=== PATIENT | female | born 1945 | race Caucasian/White ===

== ENCOUNTER 2016-06-29 16:04 | Emergency (ER) | payer MEDICARE ==
[2016-06-29 17:22] VITALS: BP 138/74
--- NOTE | 2016-06-29 17:43 | UC ---
Hip/Pelvis Pain - HPI Summary HPI Summary: 70 year old female with complaints of left hip pain. States pain has been getting worse over the last several days. The last 2 days unable to walk well due to pain. Tylenol is not helping She is unable to take NSAIDs due to plavix Pain 12/03. Denies fall. Hx arthritis Hx of needing cortisone injection in this hip several years ago with good relief - History Of Current Complaint Chief Complaint: UCGeneralIllness Stated Complaint: LEFT HIP PAIN Time Seen by Provider: 06/29/16 17:14 Hx Obtained From: Patient ?: No Onset/Duration: Gradual Onset, Lasting Days, Worse Since - x 2days Timing: Constant Severity Initially: Mild Severity Currently: Severe Pain Scale Used: 0-10 Numeric - 8/10 Location: Discrete At: - left posterior hip Character Of Pain: Sharp, Aching, Stiffness Aggravating Factor(s): Movement, Weight Bearing Alleviating Factor(s): Nothing Associated Signs And Symptoms: Negative: Swelling, Redness, Bruising, Fever, Weakness, Dizziness, Syncope, Abdominal Pain, Knee Pain Related History: Similar Episode/Dx As - arthritis - Risk Factors Septic Arthritis Risk Factor: Negative - Allergies/Home Medications Allergies/Adverse Reactions: Allergies Allergy/AdvReac Type Severity Reaction Status Date / Time Amoxicillin [From Augmentin] Allergy Itching Verified 06/29/16 17:22 Clavulanic Acid Allergy Itching Verified 06/29/16 17:22 [From Augmentin] Doxycycline Allergy Hives Verified 06/29/16 17:22 NSAIDs Allergy Bleeding Verified 06/29/16 17:23 Home Medications: Home Medications Alprazolam 0.25 mg PO 06/29/16 [History] Aspirin [Aspirin Adult Low Strengt] 81 mg PO 06/29/16 [History] Clopidogrel TAB* [Plavix TAB*] 75 mg PO DAILY 06/29/16 [History Confirmed ] Levothyroxine TAB* [Synthroid TAB*] 100 mcg PO DAILY 06/29/16 [History Confirmed 06/29/16] Lisinopril [Lisinopril 2.5 MG-] 2.5 mg PO DAILY 06/29/16 [History Confirmed 10/10] Metoprolol & Hydrochlorothiazi [Metoprolol Succinate ER/H 25-12.5 mg] 1 tab PO 06/29/16 [History] Nitroglycerin 0.4 mg SL 06/29/16 [History] PARoxetine HCL TAB* [Paxil TAB*] 40 mg PO DAILY 06/29/16 [History Confirmed 10/10] Rosuvastatin Calcium [Crestor] 5 mg PO 06/29/16 [History] predniSONE TAB* [Deltasone TAB*] 5 mg PO DAILY 06/29/16 [History Confirmed 06/29] PMH/Surg Hx/FS Hx/Imm Hx Previously Healthy: Yes Endocrine History Of: Reports: Thyroid Disease Denies: Diabetes Cardiovascular History Of: Reports: Cardiac Disorders - [place] 2004 5 stents, Hypertension Respiratory History Of: Denies: COPD, Asthma GI/ History Of: Denies: Ulcer - Surgical History Surgical History: Yes Surgery Procedure, Year, and Place: lumpectomy 2009. 5 stents placed [place] 2004 - Family History Known Family History: Positive: Cardiac Disease, Hypertension - Social History Occupation: Retired Lives: With Family - Alcohol Use: None Substance Use Type: None Smoking Status (MU): Light Every Day Tobacco Smoker Type: Cigarettes - 8 per day Have You Smoked in the Last Year: Yes Cessation Counseling: Patient Advised to Stop - Immunization History Most Recent Influenza Vaccination: fall 2015 Review of Systems Constitutional: Negative Skin: Negative Eyes: Negative ENT: Negative Respiratory: Negative Cardiovascular: Negative Gastrointestinal: Negative Genitourinary: Negative Motor: Decreased ROM - due to pain in the left hip Neurovascular: Negative Musculoskeletal: Arthralgia - left hip Neurological: Negative Psychological: Negative All Other Systems Reviewed And Are Negative: Yes Physical Exam Triage Information Reviewed: Yes Appearance: Well-Appearing, Well-Nourished, Pain Distress - resting in the wheelchair rubbing her left hip Vital Signs: Initial Vital Signs Pulse 73 06/29/16 17:13 Resp 18 06/29/16 17:13 BP 138/74 06/29/16 17:13 Pulse Ox 96 06/29/16 17:13 Vital Signs Reviewed: Yes Eyes: Positive: Conjunctiva Clear. Negative: Discharge ENT: Positive: Hearing grossly normal. Negative: Nasal congestion Neck: Positive: Supple, Nontender Respiratory: Positive: Lungs clear, Normal breath sounds. Negative: Crackles, Wheezing Abdomen Description: Positive: Nontender, Soft Musculoskeletal: Positive: No Edema, Strength Limited @ - Unable to bear full weight due to acute pain in left hip, ROM Limited @ - due to acute pain in left hip. Good sensation to light touch throughout the left lower extremity. Neurological: Positive: Alert, Muscle Tone Normal Psychological: Positive: Normal Response To Family - , Age Appropriate Behavior - pleasant and cooperative Skin: Negative: rashes, breakdown Hip Injury Course/Dx - Course Course Of Treatment: Declined one dose of toradol for pain. Medicated with [place] and Zofran for pain. Left hip xray - Differential Dx/Diagnosis Differential Diagnosis/HQI/PQRI: Arthritis, Bursitis Provider Diagnoses: Left hip pain. Arthritis Discharge - Discharge Plan Condition: Stable Disposition: HOME Prescriptions: HYDROcodone/ACETAMIN 5-325 MG* [[place] 5-325 TAB*] 1 tab PO Q4H PRN #12 tab MDD 6 PRN Reason: Severe Pain Patient Education Materials: Hip Pain (ED), Arthritis (ED) Referrals: Yamil Arriaza MD [Primary Care Provider] - Shirin Benítez MD [Medical Doctor] - 2 Days (keep your appointment for Wednesday , July 01)
[2016-06-29] MEDS ORDERED: Ondansetron ODT TAB* 4 MG PO ONE (17:47)
[2016-06-29] MEDS ORDERED: HYDROcodone/ACETAMIN 5-325 MG* 1 TAB PO ONE ×2 (17:48→19:01)
--- NOTE | 2016-06-29 18:30 | RAD ---
INDICATION: Left hip pain arthritis. COMPARISON: None TECHNIQUE: An AP view of the pelvis and AP views of the hip in neutral and abducted position were obtained FINDINGS: Bones: There are no acute bony findings. Joint spaces: The hips articulate normally. The joint spaces are preserved. SI joints/symphysis: The SI joints and symphysis are intact. 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
== END 2016-06-29 19:13 | disposition home or self-care (01) ==
LOC: UCEAST 16:04
DX: M25.552 Pain in left hip (principal); M47.816 Spondylosis without myelopathy or radiculopathy, lumbar region; Z88.6 Allergy status to analgesic agent; Z88.1 Allergy status to other antibiotic agents; E07.9 Disorder of thyroid, unspecified; I25.2 Old myocardial infarction; I10 Essential (primary) hypertension; Z95.5 Presence of coronary angioplasty implant and graft; F17.210 Nicotine dependence, cigarettes, uncomplicated
CPT/HCPCS: 99212; A9270-GY; G0463

== ENCOUNTER 2016-11-30 12:25 | Emergency (ER) | payer MEDICARE ==
[2016-11-30 15:32] VITALS: BP 110/61
--- NOTE | 2016-11-30 17:10 | RAD ---
INDICATION: Back pain with radiation down the left lower extremity since lifting her daughter 4 days earlier COMPARISON: MRI lumbar spine August 14, 2016 TECHNIQUE: 5 views of the lumbar spine were obtained. FINDINGS: Best depicted on the lateral view images, there is multilevel loss of intervertebral disc height. There is questionable loss of T12 vertebral body height including questionable discontinuity of the inferior endplate cortex. There is no definite retropulsion of fragments into the thecal canal. There is bony proliferation overlying the facet joints. There is stable mild grade 1 anterolisthesis of L5 over S1. Incidentally noted is air-filled loops small bowel measuring up to 2.9 cm in diameter. IMPRESSION: 1. There is questionable loss of height of the T12 vertebral body that may be new since the August 14, 2016 MRI of the lumbar spine. 2. Chronic degenerative changes similar in appearance to the August 14, 2016 MRI of the lumbar spine.
[2016-11-30] MEDS ORDERED: predniSONE TAB* 20 MG PO ONE (17:38)
[2016-11-30] MEDS ORDERED: HYDROcodone/ACETAMIN 5-325 MG* 1 TAB PO ONE (17:38)
--- NOTE | 2016-11-30 18:03 | ED ---
Back Pain - HPI Summary HPI Summary: 71 female presents with complaints of lower back pain that occurred after picking up her dog out of her car on 11/26/16. Patient states she has been in excruciating pain over the past couple of days. Has been taking left over tramadol and gabapentin that she takes daily without relief. Patient states pain has began to radiate down her legs, more so on the left. Denies numbness/ tingling, edema, ecchymosis, weakness, saddle anesthesia and bladder/bowel incontinence. Movement and staying in positions for long period of time makes pain worse. No other complaints at this time. Does have chronic back issues. Is able to bear weight. Denies urinary and genitalia symptoms. - History of Current Complaint Chief Complaint: EDBackInjuryPain Stated Complaint: LOWER BACK PAIN Time Seen by Provider: 11/30/16 16:25 Hx Obtained From: Patient Onset/Duration: Sudden Onset, Lasting Days, Still Present Onset/Duration: Started Days Ago, Traumatic, Still Present Timing: Constant Back Pain Location: Is Discrete @ - L2-S1 area Severity Initially: Moderate Severity Currently: Moderate Pain Intensity: 8 Pain Scale Used: 0-10 Numeric Character: Dull, Aching Aggravating Symptom(s): Movement, Lifting Alleviating Symptom(s): Rest, Position Associated Signs And Symptoms: Positive: Negative. Negative: Swelling, Redness , Weakness, Numbness, Bladder Incontinence, Bowel Incontinence, Pain with Weight Bearing - Risk Factors AAA Risk Factors: Negative TAD Risk Factors: Negative Cauda Equina Risk Factors: Negative Epidural Abscess Risk Factors: Negative - Allergies/Home Medications Allergies/Adverse Reactions: Allergies Allergy/AdvReac Type Severity Reaction Status Date / Time Amoxicillin [From Augmentin] Allergy Itching Verified 11/30/16 12:28 Clavulanic Acid Allergy Itching Verified 11/30/16 12:28 [From Augmentin] Doxycycline Allergy Hives Verified 11/30/16 12:28 NSAIDs Allergy Bleeding Verified 11/30/16 12:28 PMH/Surg Hx/FS Hx/Imm Hx Endocrine/Hematology History: Reports: Hx Thyroid Disease Denies: Hx Diabetes Cardiovascular History: Reports: Hx Hypercholesterolemia, Hx Hypertension, Other Cardiovascular Problems/Disorders - Cardiac Stents Denies: Hx Pacemaker/ICD Respiratory History: Denies: Hx Asthma, Hx Chronic Obstructive Pulmonary Disease (COPD) GI History: Denies: Hx Ulcer History: Denies: Hx Renal Disease Musculoskeletal History: Reports: Hx Osteoporosis Sensory History: Denies: Hx Hearing Aid Psychiatric History: Reports: Hx Anxiety Denies: Hx Panic Disorder - Cancer History Cancer Type, Location and Year: breast c/a 2009 Hx Chemotherapy: Yes Hx Radiation Therapy: Yes - Surgical History Surgery Procedure, Year, and Place: LT BREAST - lumpectomy 2009. 5 stents placed [place] 2004. [facility] - Immunization History Immunizations Up to Date: Yes Infectious Disease History: No Infectious Disease History: Denies: Hx Hepatitis, Hx Human Immunodeficiency Virus (HIV), Traveled Outside the [place] in Last 30 Days - Family History Known Family History: Positive: Cardiac Disease, Hypertension - Social History Alcohol Use: None Substance Use Type: Reports: None Smoking Status (MU): Current Every Day Smoker Type: Cigarettes Amount Used/How Often: 5-8 cigarettes/day Have You Smoked in the Last Year: Yes Review of Systems Constitutional: Negative Cardiovascular: Negative Respiratory: Negative Gastrointestinal: Negative Genitourinary: Negative Positive: Arthralgia, Myalgia - low back Skin: Negative Neurological: Negative All Other Systems Reviewed And Are Negative: Yes Physical Exam Triage Information Reviewed: Yes Vital Signs On Initial Exam: Initial Vitals Temp Pulse Resp BP Pulse Ox 98.1 F 91 16 109/59 96 11/30/16 12:28 11/30/16 12:28 11/30/16 12:28 11/30/16 12:28 11/30/16 12:28 Vital Signs Reviewed: Yes Appearance: Positive: Well-Appearing, Pain Distress - moderate with movement and changing positions Skin: Positive: Warm, Skin Color Reflects Adequate Perfusion, Dry, Other - no ecchymosis or edema noted. Negative: Cold, Numb, Cyanosis @, Pale, Erythema @ Head/Face: Positive: Normal Head/Face Inspection Eyes: Positive: Conjunctiva Clear ENT: Positive: Hearing grossly normal Neck: Positive: Supple, Nontender Respiratory/Lung Sounds: Positive: Clear to Auscultation, Breath Sounds Present. Negative: Rales, Rhonchi, Wheezes Cardiovascular: Positive: Normal, RRR, Pulses are Symmetrical in both Upper and Lower Extremities - 2+ pedal b/l. Negative: Murmur, Rub Abdomen Description: Positive: Nontender, Soft Bowel Sounds: Positive: Present Musculoskeletal: Positive: Normal, Limited @ - with back flexion and extension due to pain. rest of MSK exam normal, Pain @ - on palpation of left and right paraspinal muscles at level of L2-S1, more on left side. no bony tenderness., Other - no crepitus, step off or obvious deformity.. Negative: Interruption @ Neurological: Positive: Normal, Sensory/Motor Intact - sensation intact, normal neuro exam, Alert, Oriented to Person Place, Time, CN Intact II-III, Reflexes Intact, NV Bundle Intact Distally, Normal Gait Psychiatric: Positive: Affect/Mood Appropriate Diagnostics - Vital Signs Vital Signs Temp Pulse Resp BP Pulse Ox 11/30/16 16:10 98.9 F 78 16 110/61 98 11/30/16 14:35 99 F 78 16 110/61 95 11/30/16 12:28 98.1 F 91 16 109/59 96 - Laboratory Lab Statement: Any lab studies that have been ordered have been reviewed, and results considered in the medical decision making process. - Radiology lumbarspine Xray Interpretation: No Acute Changes - . There is questionable loss of height of the T12 vertebral body that may be new since the August 14, 2016 MRI of the lumbar spine. 2. Chronic degenerative changes similar in appearance to the August 14, 2016 MRI of the lumbar spine Radiology Interpretation Completed By: Radiologist Back Pain Course/Dx - Course Course Of Treatment: x-ray of lower back obtained. appears to have chronic changes. no acute fracture or dislocation. Patient appears to have suffered a lumbosacral strain due to PE findings, HPI and TRUONG. No concern for any emergent etiology at this time. no concern for cauda equina or fracture. given pain management while in ED and to continue at home. limited medications due to current daily medications taking at home. Heat, rest. Follow up with neurosurg and pcp. Aware of worsening signs and symptoms. - Diagnoses Differential Diagnosis/HQI/PQRI: Positive: Cauda Equina Syndrome, Fracture, Herniated Disc, Strain, Sprain Provider Diagnoses: Lumbosacral strain Discharge - Discharge Plan Condition: Stable Disposition: HOME Prescriptions: HYDROcodone/ACETAMIN 5-325 MG* [[place] 5-325 TAB*] 1 tab PO Q6H PRN #20 tab MDD 3 PRN Reason: Pain predniSONE TAB* [Deltasone TAB*] 20 mg PO DAILY #4 tab Patient Education Materials: Low Back Strain (ED) Referrals: Arnel Ulloa MD [Primary Care Provider] - Pio Escobar MD [Medical Doctor] - Additional Instructions: Take prescribed medications as directed to help with pain and inflammation. Take steroid in morning to avoid difficulty falling asleep. Do not take tramadol while taking hydrocodone. Rest and apply heating pad. Follow up with neurosurgeon. If new symptoms occur or worsening symptoms please return and seek medical attention promptly.
== END 2016-11-30 18:55 | disposition home or self-care (01) ==
LOC: ED 12:25
DX: S39.012A Strain of muscle, fascia and tendon of lower back, initial encounter (principal); M54.5 Low back pain; F17.210 Nicotine dependence, cigarettes, uncomplicated; X50.9XXA Other and unspecified overexertion or strenuous movements or postures, initial encounter; Y93.9 Activity, unspecified; Y92.89 Other specified places as the place of occurrence of the external cause
CPT/HCPCS: 72110; 99282; J7512

== ENCOUNTER 2016-12-03 19:04 | Emergency (ER) | payer MEDICARE ==
[2016-12-03] MEDS ORDERED: Morphine INJ* 4 MG/ML 1 ML SYRINGE IV ONE ×2 (20:45→23:02)
--- NOTE | 2016-12-03 21:30 | ED ---
Marisa Gan Edward, scribed for Sedrick Sweet MD on 12/03/16 at 2009 . Back Pain - HPI Summary HPI Summary: 71 y/o female presents to ED c/o severe hip and back pain starting a week ago. 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 The pain is located on the L side of her lower back and hip. The pain radiates into both legs. The pain is aggravated with weight bearing and sitting. PMHx lumba spinal stenosis, arthritis. - History of Current Complaint Chief Complaint: EDBackInjuryPain Stated Complaint: HIP AND BACK PAIN Time Seen by Provider: 12/03/16 20:07 Hx Obtained From: Patient Onset/Duration: Sudden Onset, Lasting Weeks - 1 week, Still Present Onset/Duration: Started Weeks Ago - 1 week, Still Present Timing: Constant Back Pain Location: Is Discrete @ - L lower back and hip, Radiates To - both legs Severity Currently: Severe Pain Intensity: 10 Pain Scale Used: 0-10 Numeric Aggravating Symptom(s): Walking - Standing and sitting Associated Signs And Symptoms: Positive: Pain with Weight Bearing - Allergies/Home Medications Allergies/Adverse Reactions: Allergies Allergy/AdvReac Type Severity Reaction Status Date / Time Amoxicillin [From Augmentin] Allergy Itching Verified 11/30/16 12:28 Clavulanic Acid Allergy Itching Verified 11/30/16 12:28 [From Augmentin] Doxycycline Allergy Hives Verified 11/30/16 12:28 NSAIDs Allergy Bleeding Verified 11/30/16 12:28 PMH/Surg Hx/FS Hx/Imm Hx Previously Healthy: No Endocrine/Hematology History: Reports: Hx Thyroid Disease Denies: Hx Diabetes Cardiovascular History: Reports: Hx Hypercholesterolemia, Hx Hypertension, Other Cardiovascular Problems/Disorders - Cardiac Stents Denies: Hx Pacemaker/ICD Respiratory History: Denies: Hx Asthma, Hx Chronic Obstructive Pulmonary Disease (COPD) GI History: Denies: Hx Ulcer History: Denies: Hx Renal Disease Musculoskeletal History: Reports: Hx Osteoporosis Sensory History: Denies: Hx Hearing Aid Psychiatric History: Reports: Hx Anxiety Denies: Hx Panic Disorder - Cancer History Cancer Type, Location and Year: breast c/a 2009 Hx Chemotherapy: Yes Hx Radiation Therapy: Yes - Surgical History Surgery Procedure, Year, and Place: LT BREAST - lumpectomy 2009. 5 stents placed [place] 2004. [facility] Infectious Disease History: No Infectious Disease History: Denies: Hx Hepatitis, Hx Human Immunodeficiency Virus (HIV), Traveled Outside the [place] in Last 30 Days - Family History Known Family History: Positive: Cardiac Disease, Hypertension - Social History Alcohol Use: None Substance Use Type: Reports: None Smoking Status (MU): Current Every Day Smoker Type: Cigarettes Amount Used/How Often: 5-8 cigarettes/day Have You Smoked in the Last Year: Yes Review of Systems Constitutional: Negative Eyes: Negative ENT: Negative Cardiovascular: Negative Respiratory: Negative Gastrointestinal: Negative Genitourinary: Negative Positive: Arthralgia - Hip and back pain Skin: Negative Neurological: Negative Psychological: Normal All Other Systems Reviewed And Are Negative: Yes Physical Exam Triage Information Reviewed: Yes Vital Signs On Initial Exam: Initial Vitals Temp Pulse Resp BP Pulse Ox 97.5 F 74 20 124/64 99 12/03/16 19:28 12/03/16 19:28 12/03/16 19:28 12/03/16 19:28 12/03/16 19:28 Vital Signs Reviewed: Yes Appearance: Positive: Well-Appearing, Pain Distress - moderate discomfort Skin: Positive: Warm Head/Face: Positive: Normal Head/Face Inspection Eyes: Positive: JUAN A ENT: Positive: Hearing grossly normal Neck: Positive: Supple Respiratory/Lung Sounds: Positive: Clear to Auscultation, Breath Sounds Present Cardiovascular: Positive: RRR Abdomen Description: Positive: Nontender, Soft Musculoskeletal: Positive: Other - moderate lower lumbar spasm, pain bilat slr l >r Neurological: Positive: Sensory/Motor Intact Psychiatric: Positive: Anxious Diagnostics - Vital Signs Vital Signs Temp Pulse Resp BP Pulse Ox 12/03/16 19:49 97.5 F 72 18 100/63 98 12/03/16 19:28 97.5 F 74 20 124/64 99 - Laboratory Result Diagrams: 12/03/16 23:29 12/03/16 23:29 Lab Statement: Any lab studies that have been ordered have been reviewed, and results considered in the medical decision making process. - Radiology SHOULDER XR Xray Interpretation: Positive (See Comments) - NO FRACTURE. (+) DJD. Radiology Interpretation Completed By: ED Physician - CT LUMBAR SPINE CT CT Interpretation: Positive (See Comments) - 1. Shortening of the L4 vertebral body as progressed since the 2116 MRI of the lumbar spine. 2. Otherwise there are multilevel degenerative changes that have not changed substantially when compared to the prior MRI of the lumbar spine. If clinically indicated, superior characterization can be made with MRI of the lumbar spine. CT Interpretation Completed By: Radiologist Re-Evaluation - Re-Evaluation 1 Re-Evaluation Time: 01:00 Comment: Pt states R shoulder pain. 2 Re-Evaluation Time: 01:50 Change: Improved - Ppt much improved, less pain, offered admision, would rather try to go home. pt d/c home Back Pain Course/Dx - Course Assessment/Plan: 71 y/o female presents to ED c/o severe hip and back pain starting a week ago. 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 The pain is located on the L side of her lower back and hip. The pain radiates into both legs. The pain is aggravated with weight bearing and sitting. PMHx lumba spinal stenosis, arthritis. LUMBAR SPINE CT SHOWS 1. Shortening of the L4 vertebral body as progressed since the fourth 2116 MRI of the lumbar spine. 2. Otherwise there are multilevel degenerative changes that have not changed substantially when compared to the prior MRI of the lumbar spine. If clinically indicated, superior characterization can be made with MRI of the lumbar spine. On re-eval pt c/o R shoulder pain. Pt will receive shoulder XR. SHOULDER XR SHOWS NO FRACTURE, POSITIVE FOR DJD. On second re-eval pt feels much better. Pt will be d/c home. - Diagnoses Provider Diagnoses: Back pain - Critical Care Time Critical Care Time: 30-74 min Discharge - Discharge Plan Condition: Improved Disposition: HOME Prescriptions: Cyclobenzaprine TAB* [Flexeril 10 MG TAB*] 10 mg PO TID PRN #20 tab PRN Reason: Spasms - Back Patient Education Materials: Back Pain (ED) Referrals: Arnel Ulloa MD [Primary Care Provider] - 1 Day (PLEASE FOLLOW UP TOMORROW) The documentation as recorded by the Marisa massey Edward accurately reflects the service I personally performed and the decisions made by , Sedrick Sweet MD.
--- NOTE | 2016-12-03 22:12 | RAD ---
INDICATION: Hip and back pain COMPARISON: L spine radiograph dated November 30, 2016 and MRI of the lumbar spine dated August 14, 2016 TECHNIQUE: Contiguous axial sections were obtained beginning lower thoracic vertebra and continuing through the sacrum. Images were reconstructed in the sagittal and coronal planes. FINDINGS: The vertebra are in normal alignment. No fracture is seen. There is no hyperdense material in the thecal sac to indicate acute hemorrhage. Degenerative changes include loss of intervertebral disc height. There is shortening of the L4 and T11 vertebral bodies. There is chronic, mild grade 1 anterolisthesis of L5 over S1. There is vacuum disc phenomenon at the left L4/L5 and L5/S1 facet joints as well as the right L5/S1 facet joint. There is broad-based disc protrusion at L3/L4 that combines with thickening of ligamentum flavum to cause mild central canal stenosis. Similar findings are seen at L4/L5 causing mild central canal stenosis. There is coarse atherosclerotic calcification of the abdominal aorta. IMPRESSION: 1. Shortening of the L4 vertebral body as progressed since the fourth 2116 MRI of the lumbar spine. 2. Otherwise there are multilevel degenerative changes that have not changed substantially when compared to the prior MRI of the lumbar spine. If clinically indicated, superior characterization can be made with MRI of the lumbar spine.
[2016-12-03] MEDS ORDERED: LORazepam INJ* 2 MG/ML 1 ML VIAL IV PUSH ONE (23:02)
[2016-12-03 23:45] LABS: BUN/Creatinine Ratio 12.3 (8-20); EGFR African American 100.8 (>60); EGFR Non-African American 78.4 (>60); Potassium 3.9 mmol/L (3.5-5.0)
[2016-12-03 23:46] LABS: Hematocrit 37 % (35-47); Mean Corpuscular HGB Conc 32 g/dl (31-36); Mean Corpuscular Hemoglobin 30 pg (27-31); Mean Corpuscular Volume 94 fL (80-97); Mean Platelet Volume 9 um3 (7.4-10.4); Red Blood Count 3.97 10^6/ul (4.0-5.4); Red Cell Distribution Width 14 % (10.5-15); White Blood Count 8.3 10^3/ul (3.5-10.8)
[2016-12-04 01:25] LABS: Urine Bilirubin Negative (Negative); Urine Glucose Negative (Negative); Urine Nitrite Negative (Negative)
[2016-12-04 01:55] VITALS: BP 91/62
--- NOTE | 2016-12-04 07:53 | RAD ---
HISTORY: Right shoulder pain, trauma COMPARISONS: September 08, 2015 VIEWS: 5, Frontal internal rotation, external rotation, outlet, and axillary views of the right shoulder FINDINGS: BONE DENSITY: There is diffuse osteopenia. BONES: There is no displaced fracture. JOINTS: There is osteoarthritis of the glenohumeral and AC joints. ALIGNMENT: There is no dislocation. SOFT TISSUES: Unremarkable. OTHER FINDINGS: None. IMPRESSION: 1. OSTEOPENIA. 2. NO ACUTE OSSEOUS INJURY. THE DEGREE OF OSTEOPENIA MAY MAKE A NONDISPLACED FRACTURE RADIOGRAPHICALLY OCCULT. IF SYMPTOMS PERSIST, RECOMMEND REPEAT IMAGING.
== END 2016-12-04 02:13 | disposition home or self-care (01) ==
LOC: ED 19:04
DX: M54.5 Low back pain (principal); M25.559 Pain in unspecified hip; M85.811 Other specified disorders of bone density and structure, right shoulder; F17.210 Nicotine dependence, cigarettes, uncomplicated
CPT/HCPCS: 36415; 72131; 80048; 81003; 85025; 96374; 96375; 99283; J2060; J2270